=== PATIENT | male | born 1965 | race Caucasian/White ===

== ENCOUNTER 2024-12-17 09:19 | Outpatient (CLI) | payer BC, SELFPAY | END 2024-12-17 09:20 | disposition home or self-care (01) | LOC: WOUND 09:27 | PROVIDERS: Visit Provider Nurse Practitioner Family | DX: E11.621 Type 2 diabetes mellitus with foot ulcer (principal); L97.522 Non-pressure chronic ulcer of other part of left foot with fat layer exposed; E11.42 Type 2 diabetes mellitus with diabetic polyneuropathy; Z79.4 Long term (current) use of insulin; Z79.84 Long term (current) use of oral hypoglycemic drugs | CPT/HCPCS: 11042; G0463 ==

== ENCOUNTER 2024-12-24 14:58 | Outpatient (CLI) | payer BC, SELFPAY | END 2024-12-24 14:59 | disposition home or self-care (01) | LOC: WOUND 14:58 | PROVIDERS: Visit Provider Nurse Practitioner Family | DX: E11.621 Type 2 diabetes mellitus with foot ulcer (principal); E11.42 Type 2 diabetes mellitus with diabetic polyneuropathy; L97.522 Non-pressure chronic ulcer of other part of left foot with fat layer exposed; G47.33 Obstructive sleep apnea (adult) (pediatric); Z79.84 Long term (current) use of oral hypoglycemic drugs | CPT/HCPCS: 11042 ==

== ENCOUNTER 2024-12-31 15:01 | Outpatient (CLI) | payer BC, SELFPAY | END 2024-12-31 15:02 | disposition home or self-care (01) | LOC: WOUND 15:01 | PROVIDERS: Visit Provider Nurse Practitioner Family | DX: E11.621 Type 2 diabetes mellitus with foot ulcer (principal); E11.42 Type 2 diabetes mellitus with diabetic polyneuropathy; L97.422 Non-pressure chronic ulcer of left heel and midfoot with fat layer exposed; Z79.84 Long term (current) use of oral hypoglycemic drugs | CPT/HCPCS: 11042 ==

== ENCOUNTER 2025-01-07 15:01 | Outpatient (CLI) | payer BC, SELFPAY ==
--- NOTE | 2025-01-07 15:45 | CRLHL7_ITS ---
For Patients: As a result of the Century Cures Act, medical imaging exams and procedure reports are released immediately into your electronic medical record. You may view this report before your referring provider. If you have questions, please contact your health care provider. Indication: Nonhealing wound Technique: Three views left foot IMPRESSION: Fixation hardware in the calcaneus with lucency about the proximal screws adjacent to soft tissue ulceration. Midfoot alignment normal. Osteoporosis. No acute fracture. Findings are suspicious for osteomyelitis/hardware failure involving the posterior calcaneus. Dictated by Samuel Luciano MD @ 01/07/2025 4:02:15 PM (Electronically Signed)
[2025-01-07 15:49] LABS: Hematocrit* 41.1 % (37.0-53.0); Hemoglobin* 13.4 gm/dL (13.5-17.5); Immature Granulocytes Abs Auto 0.02 K/uL (0.00-0.30); Immature Granulocytes Pct Auto 0.2 %; Mean Corpuscular HGB Conc 33 gm/dL (32-36); Mean Corpuscular Hemoglobin 31 pg (26-34); Mean Corpuscular Volume 96 fL (80-100); RDW Coefficient of Variation % 12.6 % (11.5-15.5); Red Blood Count* 4.28 m/uL (4.30-5.90); White Blood Count* 10.58 K/uL (4.50-11.00)
[2025-01-07 15:51] LABS: Lymphocytes Absolute Auto 1.40 K/uL (0.90-2.90); Slide Review Reflex No
== END 2025-01-07 15:02 | disposition home or self-care (01) ==
PROVIDERS: Visit Provider Nurse Practitioner Family
DX: E11.621 Type 2 diabetes mellitus with foot ulcer (principal); E11.42 Type 2 diabetes mellitus with diabetic polyneuropathy; L97.422 Non-pressure chronic ulcer of left heel and midfoot with fat layer exposed; G47.33 Obstructive sleep apnea (adult) (pediatric); Z79.4 Long term (current) use of insulin; Z79.84 Long term (current) use of oral hypoglycemic drugs
CPT/HCPCS: 11042; 36415; 73630; 85025; 86140; 87070; 87186; G0463

== ENCOUNTER 2025-01-13 06:55 | Outpatient (CLI) | payer BC, SELFPAY ==
--- NOTE | 2025-01-13 07:15 | CRLHL7_ITS ---
For Patients: As a result of the Century Cures Act, medical imaging exams and procedure reports are released immediately into your electronic medical record. You may view this report before your referring provider. If you have questions, please contact your health care provider. EXAM: MRI OF THE LEFT FOOT, WITHOUT AND WITH IV CONTRAST CLINICAL INDICATION: Heel wound. COMPARISON PLAIN FILMS: 01/07/2025. COMPARISON CROSS-SECTIONAL IMAGING STUDIES: None. TECHNICAL: Axial, sagittal and coronal T1, PD and STIR images precontrast. Postcontrast T1 weighted imaging with fat saturation. Contrast: Dotarem, 14 mL IV. FINDINGS: SOFT TISSUES JOINTS AND BONES: 1.2 cm thin shallow ulceration of the posterior aspect of the calcaneus. No deep tract or adjacent subcutaneous abscess. No fatty marrow replacement to suggest osteomyelitis. No cortical erosion, intramedullary edema or fatty marrow replacement to suggest osteomyelitis. Chronic incompletely united fracture of the calcaneus with screw fixation and loss of calcaneal height. Mild amount of nonspecific intramedullary edema in the calcaneus. Mild edema in the talus adjacent to the posterior subtalar joint consistent with reactive changes in the posterior subtalar joint. Intramedullary edema in the anterior process of the calcaneus. Subcortical cystic change and intramedullary edema in the lateral aspect of the cuboid adjacent to the chronic healed anterior process of the calcaneus fracture consistent with reactive changes. Small ankle joint effusion without synovitis to suggest septic arthritis. TENDONS AND MUSCLES: The flexor and extensor tendons are intact. Diffuse muscle atrophy and edema. IMPRESSION: 1. Shallow ulceration on the posterior aspect of the calcaneus. No deep tract, subcutaneous abscess or osteomyelitis. 2. Chronic incompletely united fracture of the calcaneus with screw fixation and loss of calcaneal height. Mild nonspecific intramedullary edema in the calcaneus. 3. Reactive juxta-articular edema in the posterior subtalar and calcaneocuboid joints. 4. Small ankle joint effusion without synovitis. 5. Diffuse muscle atrophy and edema. Dictated by Ponce Harris MD @ 01/13/2025 3:17:07 PM (Electronically Signed)
== END 2025-01-13 06:56 | disposition home or self-care (01) ==
LOC: MRI 06:57
PROVIDERS: Visit Provider Nurse Practitioner Family
DX: L97.422 Non-pressure chronic ulcer of left heel and midfoot with fat layer exposed (principal); S92.002K Unspecified fracture of left calcaneus, subsequent encounter for fracture with nonunion; M25.572 Pain in left ankle and joints of left foot; M25.472 Effusion, left ankle; M62.50 Muscle wasting and atrophy, not elsewhere classified, unspecified site
CPT/HCPCS: 73720; A9575